=== PATIENT | female | born 1975 | race African-American/Black ===

== ENCOUNTER 2019-11-23 22:38 | Emergency (ER) | payer MEDICAID ==
[~2019-11-23] VITALS: Ht 154.9 cm; Wt 64.0 kg
[2019-11-23] MEDS ORDERED: KETOROLAC 30MG/ML VIAL IV ONE (23:45)
[2019-11-23] MEDS ORDERED: PROCHLORPERAZINE 10MG/2ML VIAL IV ONE (23:45)
[2019-11-23] MEDS ORDERED: DIPHENHYDRAMINE 50MG/ML VIAL IV ONE (23:45)
[2019-11-23] MEDS ORDERED: DEXAMETHASONE 10 MG/ML VIAL IV ONE (23:45)
[2019-11-24] MEDS ORDERED: SUMATRIPTAN SUCCINATE 6MG/0.5ML VIAL SUBCUT SCH (02:00)
[2019-11-24] MEDS ORDERED: HYDROCODONE/ACETAMINOPHEN 10/325MG TABLET PO SCH (02:00)
[2019-11-24 02:41] VITALS: BP 141/81
== END 2019-11-24 02:42 | disposition home or self-care (01) ==
LOC: ER 22:38
DX: G43.909 Migraine, unspecified, not intractable, without status migrainosus (principal); R03.0 Elevated blood-pressure reading, without diagnosis of hypertension
CPT/HCPCS: 96372; 96374; 96375; 99284; J0780; J1100; J1200; J1885; J3030

== ENCOUNTER 2025-05-06 19:55 | Emergency (ER) | payer OTHER, MEDICAID ==
[~2025-05-06] VITALS: Ht 149.9 cm; Wt 64.0 kg
[2025-05-06 20:02] VITALS: O2SAT 98
[2025-05-06] MEDS: HYDROCODONE/ACETAMINOPHEN 10/325MG TABLET PO ONE (21:25)
[2025-05-06] MEDS ORDERED: CYCL5TAB3 MT (22:41)
[2025-05-06] MEDS ORDERED: IBUP-2030 MT (22:41)
[2025-05-06] MEDS: KETOROLAC 30MG/ML VIAL IM SCH (22:42)
[2025-05-06] MEDS: LORAZEPAM 1MG TABLET PO NR (22:43)
[2025-05-06] MEDS: MORPHINE SULFATE 4 MG/ML INJ (FOR IV/IM USE) IV ONE (23:45)
[2025-05-06] MEDS: PANTOPRAZOLE SODIUM 40 MG/VIAL IV ONE (23:45)
[2025-05-07 00:05] LABS: BASOPHILS % 0.6 % (0.0-2.0); EOSINOPHILS % 0.6 % (0.0-5.0); HEMATOCRIT. 38.2 % (36.0-48.0); HEMOGLOBIN. 12.5 g/dL (12.0-16.0); LYMPHOCYTES % 10.7 % (20.0-50.0); MEAN PLATELET VOLUME 7.8 fl (7.4-10.4); MONOCYTES % 3.3 % (2.0-8.0); NEUTROPHILS % 84.8 % (40.0-76.0); PLATELET 409 x1000/uL (130-400); RED BLOOD CELL COUNT 4.49 mill/uL (4.2-5.4); RED CELL DISTRIBUTION WIDTH 13.8 % (11.6-14.6)
[2025-05-07 00:16] VITALS: TEMP 36.6
[2025-05-07 00:21] LABS: INR 1.0
[2025-05-07 00:23] LABS: CREATININE 0.6 mg/dL (0.6-1.0); UREA NITROGEN BLOOD 11 mg/dL (9-23)
[2025-05-07 00:24] LABS: TROPONIN I HIGH SENSITIVITY < 4 ng/L (3.0-34)
[2025-05-07 00:25] LABS: ASPARTATE AMINOTRANSFERASE 64 IU/L (<34); BILIRUBIN DIRECT 0.2 mg/dL (<=3.0); BILIRUBIN TOTAL 0.6 mg/dL (0.1-1.0); PROTEIN TOTAL 7.1 g/dL (6.0-8.3)
[2025-05-07 00:28] VITALS: TEMP 97.9
[2025-05-07] MEDS ORDERED: IOHEXOL-300 100 ML BOTTLE ONE (02:00)
[2025-05-07 02:28] VITALS: BP 109/76; PULSE 89; RESP 12; O2SAT 98
== END 2025-05-07 02:59 | disposition home or self-care (01) ==
LOC: ER 19:55 → CMPBEDREQ 05-07 07:55
DX: S16.1XXA Strain of muscle, fascia and tendon at neck level, initial encounter (principal); E11.9 Type 2 diabetes mellitus without complications; D25.9 Leiomyoma of uterus, unspecified; Z79.899 Other long term (current) drug therapy; Z90.49 Acquired absence of other specified parts of digestive tract; V49.40XA Driver injured in collision with unspecified motor vehicles in traffic accident, initial encounter; Y92.410 Unspecified street and highway as the place of occurrence of the external cause; Y93.89 Activity, other specified; Y99.8 Other external cause status
CPT/HCPCS: 80076; 80048; 80320; 83690; 85025; 85610; 84484; 36415; 73030; 70450; 70486; 72125; 71250; 93005; 96372; 96374; 96375; 99285; 74177; J1885; J2470; J2270; Q9967; G0480